=== PATIENT | female | born 1965 | race Caucasian/White ===

== ENCOUNTER 2017-01-23 13:36 | Emergency (ER) | payer BC ==
[2017-01-23 13:50] VITALS: BP 132/70
[2017-01-23] MEDS ORDERED: Albuterol/Ipratropium NEB.SOL* Albuterol 2.5 MG/Ipratropium 0.5 MG 3 ML INH ONE (13:58)
[2017-01-23] MEDS ORDERED: predniSONE TAB* 20 MG PO ONE (13:58)
[2017-01-23] MEDS ORDERED: Amoxicillin PO (*) 500 MG CAP PO ONE (13:58)
--- NOTE | 2017-01-23 13:58 | UC ---
Respiratory Complaint HPI - HPI Summary HPI Summary: 4 days of cough---unsure about fever, is still smoking has a history of COPD - History of Current Complaint Chief Complaint: UCRespiratory Stated Complaint: UPPER RESPIRATORY COMPLAINT Time Seen by Provider: 01/23/17 13:48 Hx Obtained From: Patient ?: No Onset/Duration: Gradual Onset, Lasting Days Timing: Constant Severity Initially: Moderate Severity Currently: Moderate Character: Cough: Productive Aggravating Factors: Exertion, Deep Breaths, Recumbent Position Alleviating Factors: Nothing Associated Signs And Symptoms: Positive: Pleuritic Chest Pain, Nasal Congestion - Allergies/Home Medications Allergies/Adverse Reactions: Allergies Allergy/AdvReac Type Severity Reaction Status Date / Time No Known Allergies Allergy Verified 01/23/17 13:40 Home Medications: Home Medications Albuterol HFA INHALER* [Ventolin HFA Inhaler*] 2 puff Q4HR PRN 01/23/17 [ History Confirmed 01/23/17] Bupropion XL (NF) [Wellbutrin XL (NF)] 300 mg BEDTIME 01/23/17 [History Confirmed 01/23/17] QUEtiapine TAB* [Seroquel TAB*] 1 tab BEDTIME 01/23/17 [History Confirmed ] Zolpidem TAB* [Ambien*] 1 tab BEDTIME PRN 01/23/17 [History Confirmed 01/23/17] clonazePAM TAB(*) [Klonopin TAB(*)] 1 tab DAILY PRN 01/23/17 [History Confirmed 01/23/17] lamoTRIgine TAB(*) [Lamictal TAB(*)] 1 tab BEDTIME 01/23/17 [History Confirmed 01/23/17] PMH/Surg Hx/FS Hx/Imm Hx Previously Healthy: No Respiratory History: COPD Psychological History: Anxiety, Depression - Surgical History Surgical History: Yes Surgery Procedure, Year, and Place: Double mastectomy 2012 - Family History Known Family History: Positive: None - Social History Occupation: Employed Part-time - kitchen work at school Lives: With Family Alcohol Use: Occasionally Substance Use Type: None Smoking Status (MU): Current Some Day Smoker Type: Cigarettes Amount Used/How Often: 1 PPD Have You Smoked in the Last Year: Yes Cessation Counseling: Counseled 3+Min - 10 Min - Immunization History Most Recent Influenza Vaccination: NONE 2017 Review of Systems Constitutional: Negative Skin: Negative Eyes: Negative ENT: Negative Respiratory: Shortness Of Breath, Cough, Other - chest tight wheezing Cardiovascular: Negative Gastrointestinal: Negative Genitourinary: Negative Motor: Negative Neurovascular: Negative Musculoskeletal: Negative Neurological: Negative Psychological: Negative Is Patient Immunocompromised?: No All Other Systems Reviewed And Are Negative: Yes Physical Exam Triage Information Reviewed: Yes Appearance: Well-Appearing, No Pain Distress, Well-Nourished Vital Signs: Initial Vital Signs Temp 98.6 F 01/23/17 13:43 Pulse 97 01/23/17 13:43 Resp 18 01/23/17 13:43 BP 132/70 01/23/17 13:43 Pulse Ox 95 01/23/17 13:43 Vital Signs Reviewed: Yes Eye Exam: Normal Eyes: Positive: Conjunctiva Clear ENT Exam: Normal ENT: Positive: Normal ENT inspection, Hearing grossly normal, Pharynx normal, Nasal congestion, TMs normal. Negative: Nasal drainage, Tonsillar swelling, Tonsillar exudate, Trismus, Muffled/hoarse voice Dental Exam: Normal Neck exam: Normal Neck: Positive: Supple, Nontender, No Lymphadenopathy Respiratory Exam: Other Respiratory: Positive: Chest non-tender, No respiratory distress, No accessory muscle use, Wheezing Cardiovascular Exam: Normal Cardiovascular: Positive: RRR, No Murmur, Pulses Normal, Brisk Capillary Refill Musculoskeletal Exam: Normal Musculoskeletal: Positive: Strength Intact, ROM Intact, No Edema Neurological Exam: Normal Neurological: Positive: Alert, Muscle Tone Normal Psychological Exam: Normal Skin Exam: Normal UC Diagnostic Evaluation - Laboratory O2 Sat by Pulse Oximetry: 95 Re-Evaluation - Re-Evaluation First Eval Change: Improved - feeling much better after neb--increase aeration---wheeze continues Respiratory Course/Dx - Course Course Of Treatment: neb, prednisone, amoxicillin, nicotine cesasation information and support follow with pcp - Differential Dx/Diagnosis Differential Diagnosis/HQI/PQRI: Bronchitis, Exacerbation Of COPD, Laryngitis, Lower Resp Infection, Sinusitis Provider Diagnoses: Acute exacerbation COPD Bronchitis Discharge - Discharge Plan Condition: Stable Disposition: HOME Prescriptions: Albuterol 2.5MG/3ML (0.083%)* [Ventolin 2.5 MG/3 ML NEB.TESS*] 2.5 mg INH Q4H PRN #1 box PRN Reason: cough, chest tightness, wheeze Albuterol HFA INHALER* [Ventolin HFA Inhaler*] 2 puff INH Q4H PRN #1 mdi PRN Reason: cough/wheeze Amoxicillin PO (*) [Amoxicillin 875 MG (*)] 875 mg PO BID #20 tab predniSONE TAB* [Deltasone TAB*] 10 mg PO DAILY #30 tab Patient Education Materials: How to Stop Smoking (ED), Acute Bronchitis (ED), How to Use a Nebulizer (ED), Bronchospasm (ED) Forms: *Work Release Referrals: [facility] [place] PHYSICIAN REFERRAL [Outside] - 2 Weeks
== END 2017-01-23 14:37 | disposition home or self-care (01) ==
LOC: UCCORT 13:36
DX: J44.1 Chronic obstructive pulmonary disease with (acute) exacerbation (principal); F41.9 Anxiety disorder, unspecified; F32.9 Major depressive disorder, single episode, unspecified; Z71.6 Tobacco abuse counseling; Z72.0 Tobacco use
CPT/HCPCS: 99203; A9270-GY; G0463; J7512

== ENCOUNTER 2019-03-03 17:05 | Emergency (ER) | payer BC, MEDICARE ==
--- NOTE | 2019-03-03 19:02 | UC ---
Laceration HPI - HPI Summary HPI Summary: Patient is a 53-year-old female presenting with laceration between left fourth and fifth toes after stubbing her toe on a metal baby gait. Patient also notes pain of the toe with ambulation. States she believes it may be broken. Notes swelling and bruising. The laceration immediately bled but has since stopped. Denies numbness and tingling. Denies radiating pain. Patient states she is up- to-date on her tetanus. 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, PERIMENOPAUSE Severity: Mild Pain Intensity: 3 Pain Scale Used: 0-10 Numeric - Allergies/Home Medications Allergies/Adverse Reactions: Allergies Allergy/AdvReac Type Severity Reaction Status Date / Time No Known Allergies Allergy Verified 03/03/19 17:47 PMH/Surg Hx/FS Hx/Imm Hx - Surgical History Surgical History: Yes Surgery Procedure, Year, and Place: Double mastectomy 2012 - Family History Known Family History: Positive: None, Non-Contributory - Social History Alcohol Use: Occasionally Substance Use Type: None Smoking Status (MU): Former Smoker Type: Cigarettes Amount Used/How Often: 1 PPD Have You Smoked in the Last Year: Yes - Immunization History Most Recent Influenza Vaccination: NONE 2016 Most Recent Tetanus Shot: 01/2019 Review of Systems All Other Systems Reviewed And Are Negative: No Constitutional: Positive: Negative Skin: Positive: Bruising, Other - Laceration between left fourth and fifth toes Respiratory: Positive: Negative Cardiovascular: Positive: Negative Gastrointestinal: Positive: Negative. Negative: Vomiting, Nausea Musculoskeletal: Positive: Arthralgia, Edema Neurological: Negative: Paresthesia, Numbness Physical Exam Triage Information Reviewed: Yes Appearance: Well-Appearing, No Pain Distress, Well-Nourished Vital Signs: Initial Vital Signs Temp 98.6 F 03/03/19 17:50 Pulse 68 03/03/19 17:50 Resp 16 03/03/19 17:50 BP 122/75 03/03/19 17:50 Pulse Ox 96 03/03/19 17:50 Vital Signs Reviewed: Yes Eyes: Positive: Conjunctiva Clear ENT: Positive: Hearing grossly normal Neck: Positive: Supple Respiratory: Positive: No respiratory distress Cardiovascular: Positive: Pulses Normal - Strong pedal pulses bilaterally, Brisk Capillary Refill Musculoskeletal: Positive: ROM Limited @ - toe flexion, Edema @ - dorsolateral L foot, Other: - tenderness to palpation of L 5th toe and lateral forefoot Neurological Exam: Other - Sensation grossly intact Neurological: Positive: Alert Psychological: Positive: Age Appropriate Behavior Skin Exam: Other - erythema noted over L 5th toe extending to forefoot Laceration Course/Dx - Course/Dx Course Of Treatment: Patient's wound was irrigated and a dressing was applied. No laceration repair was performed and patient was treated as an open fracture. I treated with Keflex to prevent infection. She received postop shoe and crutches and was told not to bear weight. Instructed to follow-up with Dr. Bajwa as soon as possible for further evaluation and treatment. Dr. Ibarra also reviewed xrays and agreed with the treatment plan. - Diagnosis Provider Diagnosis: Fracture of fifth toe, left, open Discharge ED - Sign-Out/Discharge Documenting (check all that apply): Patient Departure All imaging exams completed and their final reports reviewed: No - Discharge Plan Condition: Stable Disposition: HOME Prescriptions: Cephalexin CAP* [Keflex CAP*] 500 mg PO TID #15 cap Patient Education Materials: Toe Fracture (ED), Laceration Without Closure (ED) Referrals: Shaun Bajwa MD [Medical Doctor] - As Soon As Possible Additional Instructions: As discussed, your xrays were read by the provider who treated you tonight. A fracture at the base of your small toe was noted. Take Keflex as prescribed to prevent infection. Keep the wound clean and dry. Do not bear weight on that foot. Wear the post op shoe and use crutches for support. It is important that you follow up as soon as possible with the orthopedic referral listed below for further evaluation and treatment. Go to the emergency room if you experience severe pain, increasing redness and warmth of the area, drainage, excessive bleeding, fever, nausea, or vomiting. - Billing Disposition and Condition Condition: STABLE Disposition: Home
[2019-03-03 20:10] VITALS: BP 151/83
--- NOTE | 2019-03-04 10:11 | UC ---
- Progress Note Progress Note: Patient Name: LARISA WARD Medical Record#: [id number] Ordering Physician: Meseret ARVIZU Acct.#: [id number] : 1965 Age: 53 Sex: F Location: [facility]RG[facility] Exam Date: 03/03/191907 ADM Status: [facility] ER Order Information: FOOT LEFT 3+ VWS Accession Number: [id number] CPT: 47945 INDICATION: Left foot laceration, trauma. TECHNIQUE: 3 views of the left foot were obtained. FINDINGS: There is soft tissue swelling adjacent to the fifth toe. There is a small amount of gas within the soft tissues consistent with the patient's history of a laceration injury. There is a small displaced fracture fragment arising from the medial base of the fifth proximal phalanx. The fracture fragment measures approximately 3 mm in size and is displaced medial and proximal. IMPRESSION: SMALL DISPLACED FRACTURE FRAGMENT ARISING FROM THE MEDIAL BASE OF THE FIFTH PROXIMAL PHALANX. R0 Preliminary Imaging Read R0 <Electronically signed by Saul Mane MD in OV> 03/04/19711 Dictated By: Saul Mane MD Dictated Date/Time: 03/04/19709 Transcribed Date/Time: 03/04/19709 Copy to: CC:Ted Lozada MD; Meseret ARVIZU; Rigo Ibarra MD Imaging - [facility] Imaging - [place] [facility] [address] [address] ph ([phone]) ph ([phone]) ph ) This report is only to be considered final once signed by the Provider(s) as displayed in the "<Electronically Signed by >" field (s). Absence of a signature indicates the report is in a draft status and still needs to be finalized. In the event this document was created by someone other than the signing Provider, the individual initiating the document will be listed in the "Entered by:" or "Dictated by:" santos. 1 of 1 Course/Dx - Diagnoses Provider Diagnoses: Fracture of fifth toe, left, open Discharge ED - Sign-Out/Discharge Documenting (check all that apply): Post-Discharge Follow Up All imaging exams completed and their final reports reviewed: Yes - Discharge Plan Condition: Stable Disposition: HOME Prescriptions: Cephalexin CAP* [Keflex CAP*] 500 mg PO TID #15 cap Patient Education Materials: Toe Fracture (ED), Laceration Without Closure (ED) Referrals: Shaun Bajwa MD [Medical Doctor] - As Soon As Possible Additional Instructions: As discussed, your xrays were read by the provider who treated you tonight. A fracture at the base of your small toe was noted. Take Keflex as prescribed to prevent infection. Keep the wound clean and dry. Do not bear weight on that foot. Wear the post op shoe and use crutches for support. It is important that you follow up as soon as possible with the orthopedic referral listed below for further evaluation and treatment. Go to the emergency room if you experience severe pain, increasing redness and warmth of the area, drainage, excessive bleeding, fever, nausea, or vomiting. - Billing Disposition and Condition Condition: STABLE Disposition: Home
== END 2019-03-03 20:12 | disposition home or self-care (01) ==
LOC: UCCORT 17:05
DX: S92.512A Displaced fracture of proximal phalanx of left lesser toe(s), initial encounter for closed fracture (principal); Z87.891 Personal history of nicotine dependence; W22.8XXA Striking against or struck by other objects, initial encounter; Y92.9 Unspecified place or not applicable
CPT/HCPCS: 99213; G0463